=== PATIENT | male | born 1995 | race Caucasian/White ===

== ENCOUNTER 2017-03-10 11:52 | Inpatient (IN) | payer OTHER ==
[~2017-03-10] VITALS: Ht 182.9 cm; Wt 77.1 kg
[2017-03-10] MEDS ORDERED: LORAZEPAM0.5 M1 PO (12:46)
--- NOTE | 2017-03-10 12:57 | ED PSYCHIATRIC COMPLAINT ---
See Addendum History of Present Illness General Chief Complaint: Psychiatric Related Complaint Stated Complaint: BIBA FOR PSYCH Source: MOTHER Exam Limitations: unable to give history, clinical condition Vital Signs & Intake/Output Vital Signs & Intake/Output Vital Signs Date Time Temp Pulse Resp B/P B/P Pulse O2 O2 Flow FiO2 Mean Ox Delivery Rate 03/10 1926 97.2 98 130/84 97 03/10 1310 98.2 88 18 160/80 99 Room Air Allergies Coded Allergies: NO KNOWN ALLERGIES (05/03/12) Reconcile Medications Lorazepam 0.5 MG TABLET 1 TAB PO BIDP PRN ANXIETY (Reported) Triage Note: PT BIBA FROM CARE FOR CHANGE IN AFFECT FROM BASELINE. PATIENT ARRIVES TO ER AOX3, SLOW TO RESPOND TO QUESTIONS, MUMBLING. DENIES ILLICIT DRUG USE OR ETOH. DENIES SI/HI. Triage Nurses Notes Reviewed? yes HPI: Patient presents for evaluation of altered mental status. Patient himself is unable to provide any history. When he attempts to answer a question he simply trails off midsentence and never completes the comment. According to his mother he was recently admitted to [facility] and treated for drug abuse and catatonia with Ativan. He was evaluated again a few days ago in the emergency department after the Ativan prescription ran out and was treated with Ativan and Valium and prescribed additional Ativan. Appointment pending with behavioral health tomorrow. (MARILU SARAVIA,JEAN Benitez) Past History Travel History Traveled to [place] past 21 day No Medical History Any Pertinent Medical History? 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 No (MARILU SARAVIA,JEAN Benitez) Review of Systems Review of Systems Constitutional: Reports: no symptoms. EENTM: Reports: no symptoms. Respiratory: Reports: no symptoms. Cardiovascular: Reports: no symptoms. GI: Reports: no symptoms. Genitourinary: Reports: no symptoms. Musculoskeletal: Reports: no symptoms. Skin: Reports: no symptoms. Neurological/Psychological: Reports: no symptoms. Hematologic/Endocrine: Reports: no symptoms. Immunologic/Allergic: Reports: no symptoms. All Other Systems: Reviewed and Negative (MARILU SARAVIA,JEAN Benitez) Physical Exam Physical Exam General Appearance: SEE BELOW Neurological/Psychiatric: SEE BELOW Comments: General: Alert, calm, cooperative Head: Normocephalic, atraumatic Eyes: Normal inspection, no nystagmus, EOMI Ears: Normal inspection Nose: Normal inspection Throat: Moist mucosa Neck: Supple, no goiter Heart: Regular rate and rhythm, no murmurs rubs or gallops Lungs: Clear to auscultation bilaterally with good air entry Abdomen: Soft nontender nondistended, normal bowel sounds Chest: Nontender Extremities: Normal range of motion grossly, no tremors present, no cyanosis clubbing or edema of the upper extremities Neurologic: cranial nerves II through XII grossly intact, mumbled speech,gait normal Psychiatric: Distant affect with a question of thought blocking or auditory hallucinations, very limited evaluation as the patient cannot effectively communicate. SAD PERSONS Done? unobtained due to conditi (MARILU SARAVIA,JEAN Benitez) Progress Differential Diagnosis: CATATONIA, DEPRESSION, DRUG ABUSE Plan of Care: Orders Procedure Date/time Status Regular Diet 03/10 D Active Patient Safety Monitor 03/10 1257 Active URINE DRUG SCREEN FOR ER ONLY 03/10 1257 Complete THYROID STIMULATING HORMONE 03/10 1257 Complete ETHANOL 03/10 1257 Complete CBC WITHOUT DIFFERENTIAL 03/10 1257 Complete BASIC METABOLIC PANEL 03/10 1257 Complete ED CRISIS PSYCH CONSULT 03/10 1257 Active Patient Safety Monitor 03/10 0500 Active Current Medications Sig/Devyn Start time Last Medication Dose Stop Time Status Admin Lorazepam 1 MG Q8 03/10 1528 AC 03/10 (Ativan) 1606 Laboratory Tests 03/10/17 1355: Urine Opiates Screen < 100.00, Methadone Screen < 40, Barbiturate Screen < 60, Ur Phencyclidine Scrn < 6.00, Amphetamines Screen < 100, U Benzodiazepines Scrn 236 H, Urine Cocaine Screen < 50, Urine Cannabis Screen < 5.00 03/10/17 1310: Anion Gap 13, Estimated GFR > 60, BUN/Creatinine Ratio 15.0, Glucose 91, Calcium 9.5, TSH 0.761, CBC w Diff NO MAN DIFF REQ, RBC 5.52, MCV 88.3, MCH 30.2, RDW 12.6, MPV 8.8, Gran % 68.3, Lymphocytes % 22.4, Monocytes % 8.1, Eosinophils % 0.7, Basophils % 0.5, Absolute Granulocytes 4.7, Absolute Lymphocytes 1.5, Absolute Monocytes 0.6, Absolute Eosinophils 0, Absolute Basophils 0, PUBS MCHC 34.2, Serum Alcohol < 10.0 Comments: 03/10/2017 3:31:11 PM patient has been evaluated by the clinician oncology and he will be observed here in the emergency department and treated with Ativan. To be reevaluated tomorrow morning. 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 (MARILU SARAVIA,JEAN Benitez) Hand-Off Endorsed To: JEAN MICHEL MD Endorsed Time: 0700 Pending: consult (re-eval in AM) (LÁZARO LUO MD) Departure Departure Disposition: STILL A PATIENT Condition: Stable Clinical Impression Primary Impression: Catatonia Referrals: JAYLEN SARAVIA,AUGUST Vazquez (PCP/Family) Departure Forms: Customer Survey General Discharge Information (JEAN MICHEL MD)
--- NOTE | 2017-03-10 13:03 | ED PSY CRISIS COLLATERAL NOTE ---
Collateral Note Collateral Note Family/Inform/Patric Contacts: Lesley and Eileen of [facility] called to inform that they sent pt to the ED from their IOP today. Dr. Bellamy was in the process of papering pt, but the ambulance left with pt before the PEC was completed. Pt has been in tx at [facility] for 1 month and today was pt's 1st day of IOP. He was at IOP today and presented as confused and disoriented. He was barely able to speak other than saying random one word at a time. He was seen in [place] ED over the weekend after ingesting an herbal intoxicant called kratom. Lesley informed that per the [place] discharge paperwork, pt had a similar presentation to today and was deemed not safe for discharge, but Mom still took him home. Pt was Psychiatrically hospitalized in January at [place]. Pt has not yet seen a prescriber at [facility], but is supposed to tomorrow. Pt ran out of his Ativan 0.5mg that was prescribed to him while he was at [facility]. Pt is currently prescribed any other psych meds.
[2017-03-10 13:18] LABS: ABSOLUTE BASOPHIL COUNT 0 /CUMM (0.0-0.2); ABSOLUTE EOSINOPHIL COUNT 0 /CUMM (0.0-0.7); ABSOLUTE GRANULOCYTE CT 4.7 /CUMM (1.4-6.5); ABSOLUTE LYMPH COUNT 1.5 /CUMM (1.2-3.4); ABSOLUTE MONOCYTE COUNT 0.6 /CUMM (0.10-0.60); BASOPHIL % 0.5 % (0.0-2.0); EOSINOPHIL % 0.7 % (0-5); GRANULOCYTE % 68.3 % (42.2-75.2); HEMATOCRIT 48.7 % (42-52); MEAN CORPUSCULAR HGB 30.2 PG (27.0-31.0); MEAN CORPUSCULAR HGB CONC 34.2 G/DL (33.0-37.0); MEAN CORPUSCULAR VOLUME 88.3 FL (80.0-94.0); MEAN PLATELET VOLUME 8.8 FL (7.4-10.4); PLATELET COUNT 237 /CUMM (130-400); RBC DISTRIBUTION WIDTH 12.6 % (11.5-14.5); RED BLOOD CELL CT 5.52 /CUMM (4.70-6.10); WHITE BLOOD CELL COUNT 6.8 /CUMM (4.8-10.8)
--- NOTE | 2017-03-10 16:13 | ED PSYCH CRISIS CONSULTATION ---
See Addendum Crisis Consult Basic Assessment Date of Consult: 03/10/17 Responsible Person/Accompanied By: VAL Insurance Authorization: Insurance #1: Insurance name: SIENA MONTOYA Phone number: Policy number: [id number] Group number: [id number] Authorization number: ED Provider: Patient's ED Provider: JEAN DOBSON MD Primary Care Physician: Patient's PCP: AUGUST YORK MD PCP's Current Psychiatrist: [facility] Chief Complaint: Psychiatric Related Complaint Patient's Quote: none stated Present Illness: Pt is 21 yo male BIBA to ED. Pt was sent to ED by [facility] .Pt presents as catatonic and thought blocking. Pt is unable to articulate or put 2 words together for evaluation. This specifications writer consulted with Dr. Dobson and Dr. Curtis. Dr. Curtis recommends hold over for sedation with Ativan 1mg 3x day to treat symptoms of catatonia. Per collateral note :Lesley and Eileen of [facility] called to inform that they sent pt to the ED from their IOP today. Dr. Bellamy was in the process of papering pt, but the ambulance left with pt before the PEC was completed. Pt has been in tx at [facility] for 1 month and today was pt's 1st day of [facility]. He was at [facility] today and presented as confused and disoriented. He was barely able to speak other than saying random one word at a time. He was seen in [place] ED over the weekend after ingesting an herbal intoxicant called kratom. Lesley informed that per the [place] discharge paperwork, pt had a similar presentation to today and was deemed not safe for discharge, but Mom still took him home. Pt was Psychiatrically hospitalized in January at [place]. Pt has not yet seen a prescriber at [facility], but is supposed to tomorrow. Pt ran out of his Ativan 0.5mg that was prescribed to him while he was at [place]. Pt is currently prescribed any other psych meds.>>>>>>>>>>>>>>>>>>> BRAYDEN OLMSTEAD LCSW Patient's Address: [address] [place] [address] [place] [address] Other Phone Number: Who Do You Live With? Family Family/Informants Interviewed: Kathryn- mother. This specifications writer left a voice mail for collateral Allergies - Coded Allergies: NO KNOWN ALLERGIES (05/03/12) Current Medications - Scheduled PRN Medications Lorazepam 0.5 MG TABLET 1 TAB PO BIDP PRN ANXIETY #28 (Reported) Entered as Reported by NILSON CHAWLA on 03/10/17 1246 Laboratory Results: Laboratory Tests 03/10/17 1355: Urine Opiates Screen < 100.00, Methadone Screen < 40, Barbiturate Screen < 60, Ur Phencyclidine Scrn < 6.00, Amphetamines Screen < 100, U Benzodiazepines Scrn 236 H, Urine Cocaine Screen < 50, Urine Cannabis Screen < 5.00 03/10/17 1310: Anion Gap 13, Estimated GFR > 60, BUN/Creatinine Ratio 15.0, Glucose 91, Calcium 9.5, TSH 0.761, CBC w Diff NO MAN DIFF REQ, RBC 5.52, MCV 88.3, MCH 30.2, RDW 12.6, MPV 8.8, Gran % 68.3, Lymphocytes % 22.4, Monocytes % 8.1, Eosinophils % 0.7, Basophils % 0.5, Absolute Granulocytes 4.7, Absolute Lymphocytes 1.5, Absolute Monocytes 0.6, Absolute Eosinophils 0, Absolute Basophils 0, PUBS MCHC 34.2, Serum Alcohol < 10.0 Past History Past Medical History Neurological: CATATONIA EENT: NONE Cardiovascular: NONE Respiratory: NONE Gastrointestinal: NONE Hepatic: NONE Renal: NONE Musculoskeletal: NONE Psychiatric: substance abuse Endocrine: NONE Blood Disorders: NONE Cancer(s): NONE 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 Psychiatric Treatment History Psych Treatment Psychiatric Treatment Yes Inpatient Treatment Yes Outpatient Treatment Yes Location of Treatment [facility] ( most recent January 2017 IP) Care - present Reason for Treatment substances ( Kratom) Dates of Treatment January 2017 Response to Treatment poor Diagnosis by History: none stated Substance Use/Abuse History Drug Use/Abuse Substances Used/Abused Yes Substance Used/Abused Other (list in comments) (Kratom ) Substance Abuse Treatment Substance Abuse Treatment Past Substance Abuse [place] Yes Inpatient Treatment Yes Location of Treatment [place] Comments: unable to assess substance abuse hx at this time Current Mental Status Mental Status Orientation: Confused Affect: Constricted, Flat Speech: Poverty Appearance Appearance- Dress/Hygiene: Pt is dressed in blue hospital gown, hygiene fair, blue eyes- appeared dialated Behaviors Thought Process: Thought Blocking Thought Content: Thought Blocking Memory: Impaired Insight: Poor SI/HI Risk Assessment Gravely Disabled: Inability Risk Factors: age (under 24/over 65), high anxiety/distress, SA/MH hospitalized, isolate/no social support, male, Pt is catatonic and unable to articulate symptoms Lethality Ratin PTSD Checklist PTSD Done? pt unable to participate ED Management Sitter: Yes Restraints: No DSM5/PS Stressors/Medical Prob Diagnosis' (DSM 5, Stressors, Medical): Unspecified catatonia ( F06.1) ( R29.818) hx of using kratom medical: none stated psychosocial: unknown Current GAF: 20 Comments: Pt is unable to provide psychosocial hx of MH/SA. Departure Disposition Psych Medical Clearance Date: 03/10/17 Medically Cleared at: 1440 Time Started: 1440 Time Ended: 1515 Psychiatrist Consulted: Gurdeep Curtis MD Date Disposition Established: 03/10/17 Time Disposition Established: 1514 Plan for Disposition - Modality: Hold over for sedation Rationale for Disposition: Pt presents as gravely disabled ie catatonic , thought blocking and unable to articulate or give coherent story. This specifications writer consulted with Dr. Curtis and recommends hold over for sedation with Ativan 1mg 3x day to treat symptoms of catanoia. Referrals JAYLEN SARAVIA,AUGUST Vazquez (PCP/Family)
--- NOTE | 2017-03-11 09:45 | IP CRISIS DIAG ASSESS PSYCH ---
Diagnostic Assessment Basic Assessment Insurance Authorization: Insurance #1: Insurance name: SIENA MONTOYA Phone number: [phone] Policy number: [id number] Group number: [id number] Authorization number: [id number] dates approved through 03/11-03/14/17 Review with Suzette on 03/14 Primary Care Physician: Patient's PCP: AUGUST YORK MD PCP's Patient's Quote: none stated Present Illness: Pt is 21 yo male BIBA to ED. Pt was sent to ED by [facility] .Pt presents as catatonic and thought blocking. Pt is unable to articulate or put 2 words together for evaluation. This narrative writer consulted with Dr. Dobson and Dr. Curtis. Dr. Curtis recommends hold over for sedation with Ativan 1mg 3x day to treat symptoms of catatonia. Per collateral note :Lesley and Eileen of [facility] called to inform that they sent pt to the ED from their IOP today. Dr. Bellamy was in the process of papering pt, but the ambulance left with pt before the PEC was completed. Pt has been in tx at [facility] for 1 month and today was pt's 1st day of IOP. He was at [facility] today and presented as confused and disoriented. He was barely able to speak other than saying random one word at a time. He was seen in [facility] ED over the weekend after ingesting an herbal intoxicant called kratom. Lesley informed that per the [facility] discharge paperwork, pt had a similar presentation to today and was deemed not safe for discharge, but Mom still took him home. Pt was Psychiatrically hospitalized in January at [facility]. Pt has not yet seen a prescriber at [facility], but is supposed to tomorrow. Pt ran out of his Ativan 0.5mg that was prescribed to him while he was at [facility]. Pt is currently prescribed any other psych Pt presents as gravely disabled ie catatonic , thought blocking and unable to articulate or give coherent story. This narrative writer consulted with Dr. Curtis and recommends hold over for sedation with Ativan 1mg 3x day to treat symptoms of catanoia. Pt's mom is with patient gave this narrative writer 2 discharge summaries of his recent ED visits for substanced induced catatonia ( dates January 18-January 26 2017 [facility] 03/06/17 ). Today Pt's UTOX was positive for benzo. Alcohol was negative . Crisis provided re-eval. Pt presented as non-verbal but maintaining eye contact. appears restless/pacing in room and hallway. Parents present. POC reviewed. Pt ordered Ativan 1mg TID with plan to re-assess by crisis in the morning to determine if pt clears or requires inpatient treatment. Crisis re-evaluated pt his morning. In morning sign-out, per Dr. Sandoval, pt was wandering into other pt's room during the night and staring at them. Upon crisis re eval, pt continues to thought block and have difficulty with verbal expression. His affect is flat. He is able to get some words out, but they are random and not relevant to the questions asked. He had periodic moments of clarity that were sporadic and did not last. He was able to identify that he is in [facility] and that he was sent by [facility]. He was able to ask if he could call his father. WHen he was told he was going to be admitted to [facility], he expressed that he wanted to go home. Pt continues to wander out of his room with a blank stare on his face. Case reviewed with Dr. John of Psychiatry and pt will be admitted to [facility] on a PEC. Pt's parents were informed. Mom Kathryn German asked that she be called on her cell rather than home . Diagnostic assessment was limited to to pt's current presentation. Patient's Address: [address] [place] [address] [place] [address] Other Phone Number: Who Do You Live With? Family Feel Safe Where You Live? Yes Feel Safe in Your Relationship Yes Marital Status: single Do You Have Children? No Primary Language? Indonesian Language(s) Spoken At Home: Lithuanian Family/Informants Interviewed: Parents were notified of admission and are in agreement. [facility] also notified Allergies - Coded Allergies: NO KNOWN ALLERGIES (05/03/12) Current Medications - Scheduled PRN Medications Lorazepam 0.5 MG TABLET 1 TAB PO BIDP PRN ANXIETY #28 (Reported) Entered as Reported by NILSON CHAWLA on 03/10/17 3250 Lab Results: Laboratory Tests 03/10/17 1355: Urine Opiates Screen < 100.00, Methadone Screen < 40, Barbiturate Screen < 60, Ur Phencyclidine Scrn < 6.00, Amphetamines Screen < 100, U Benzodiazepines Scrn 236 H, Urine Cocaine Screen < 50, Urine Cannabis Screen < 5.00 03/10/17 1310: Anion Gap 13, Estimated GFR > 60, BUN/Creatinine Ratio 15.0, Glucose 91, Calcium 9.5, TSH 0.761, CBC w Diff NO MAN DIFF REQ, RBC 5.52, MCV 88.3, MCH 30.2, RDW 12.6, MPV 8.8, Gran % 68.3, Lymphocytes % 22.4, Monocytes % 8.1, Eosinophils % 0.7, Basophils % 0.5, Absolute Granulocytes 4.7, Absolute Lymphocytes 1.5, Absolute Monocytes 0.6, Absolute Eosinophils 0, Absolute Basophils 0, PUBS MCHC 34.2, Serum Alcohol < 10.0 Toxicology Screen Completed? Yes Results: positive Past History Past Surgical History Surgical History none Abuse/Trauma History Trauma History/Current Trauma: unable to assess Legal History Current Legal Status: unable to assess Psychosocial History Strengths/Capabilities: unable to assess at this time Physical Limitations (Interventions): unable to assess at this time. Psychiatric Treatment History Psych Treatment Psychiatric Treatment Yes Inpatient Treatment Yes Outpatient Treatment Yes Location of Treatment [facility] ( most recent January 2017 IP) [facility] - present Reason for Treatment substances ( Kratom) Dates of Treatment January 2017 Response to Treatment poor Diagnosis by History: none stated Risk Factors: age (under 24/over 65), high anxiety/distress, SA/MH hospitalized, isolate/no social support, male, Pt is catatonic and unable to articulate symptoms Substance Use/Abuse History Drug Use/Abuse minimum 12mo Hx Substances Used/Abused Yes Substance Used/Abused Other (list in comments) (Kratom ) Substance Abuse Treatment Substance Abuse Treatment Past Substance Abuse TX Yes Inpatient Treatment Yes Location of Treatment [facility] Current Mental Status Mental Status Orientation: Confused Affect: Constricted, Flat Speech: Poverty Appearance Appearance- Dress/Hygiene: Pt is dressed in blue hospital gown, hygiene fair, blue eyes- appeared dialated Behaviors Thought Process: Thought Blocking Thought Content: Thought Blocking Memory: Impaired Insight: Poor SI/HI Risk Assessment - Minimum 6mo History- Gravely Disabled: Inability Risk Factors: age (under 24/over 65), high anxiety/distress, SA/MH hospitalized, isolate/no social support, male, Pt is catatonic and unable to articulate symptoms Lethality Ratin Needs/Init TX Plan/Goals: Safety and stabilization of sx, individual, group and family therapy, med eval AUDIT-C Questionnaire: AUDIT-C Questionnaire: Response Value ETOH use in the past year Never 0 # drinks typical/day Doesn't Drink 0 6 or > drinks per occasion Never 0 Total 0 DSM5/PS Stressors/Medical Prob Diagnosis' (DSM 5, Stressors, Medical): Unspecified catatonia ( F06.1) ( R29.818) hx of using kratom medical: none stated psychosocial: unknown Current GAF: 20 Comments: Pt is unable to provide psychosocial hx of MH/SA.
--- NOTE | 2017-03-11 10:14 | SOCIAL WORKER PROG NOTE PSYCH ---
Social Work Progress Note Progress Note Unable to complete social hx due tp pt's sx
--- NOTE | 2017-03-11 14:16 | History & Physical ---
General Information and HPI History of Present Illness: 21M admitted to [facility] with catatonia. Unknown psychiatry history, most recently seen at behavioral health at [place]. Per [facility] staff patient takes Kratom. Patient is minimally verbal, not responsive to questions or commands. He is walking around but not interacting. He appears well and in no other distress. Refusing review of systems and physical exam. 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 Home ETOH Use: denies use Review of Systems Review of Systems Constitutional: Reports: see HPI. Exam & Diagnostic Data Last 24 Hrs of Vital Signs/I&O Vital Signs Date Time Temp Pulse Resp B/P B/P Pulse O2 O2 Flow FiO2 Mean Ox Delivery Rate 03/11 1210 97.0 104 18 164/94 97 Room Air 03/11 0743 97.6 108 18 157/95 97 Room Air 03/11 0603 97.9 90 18 152/94 99 Room Air 03/10 1926 97.2 98 130/84 97 Intake & Output 03/11 1600 03/11 0800 03/11 0000 Intake Total 45 Output Total Balance 45 Intake, Oral 45 Patient 77.111 kg Weight Physical Exam General Appearance Refuses physical exam Assessment/Plan Assessment: 21M admitted for catatonic behavior. Management will be by psychiatry. Re- consult medicine if medical issues arise. Ambulatory for DVT PPx As Ranked By This Provider Problem List: 1. Catatonia Miscellaneous Miscellaneous Documentation Attending Case Discussed With: OSMANY HOLT MD Primary Care Physician: AUGUST YORK MD Patient sees these Specialists None Level of Patient Care: [facility]
--- NOTE | 2017-03-11 23:24 | CPS MD/APRN INITIAL ASSE PSYCH ---
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 Chief Complaint: patient is unable to respond due to agitation and disorganization Reaction to Hospitalization: placed on PEC for grave disability History of Present Illness Onset of Illness: In December 2016 he presented to the [facility]'s ED with restlessness , disorientation,disorganized. hospitalized January 18-January 26 2017 [facility] 03/06/17 Circumstances Leading to Admission: The patient started IOP at [facility] and was unable to participate because of dizorganization, thought blocking, inability to relate and communicate. He was sent to our ED from there. Problem(s) Justifying Need for Admission: confused, disorganized,unable to for coherent thought/speech, gravely disabled Other HPI: none mentioned by patient nor his parents Past Psychiatric History Past Diagnosis(es)- if any: Substance induced psychotic disorder(per [place]) Past Precipitating Factors- if any: use of herbal stimulant/sedative Kratom - Include inpatient and outpatient treatment Treatment History: as noted History of Suicide Attempts or Gestures none known by parents, pt. unable to cooperate Substance Abuse History: Kratom Allergies: Coded Allergies: NO KNOWN ALLERGIES (05/03/12) Home Med List: lorazepam 0.5 mg po BID - Include any medical condition(s) that may - impact the patient's recovery/remission Past Medical History: none Past History Medical History Any Pertinent Medical History? unobtainable Blood Transfusion Hx: No Neurological: CATATONIA EENT: NONE Cardiovascular: NONE Respiratory: NONE Gastrointestinal: NONE Hepatic: NONE Renal: NONE Musculoskeletal: NONE Psychiatric: substance abuse Endocrine: NONE Blood Disorders: NONE Cancer(s): NONE DELIVERY SUPERVISOR/Reproductive: NONE Isolation History: Standard Surgical History Surgical History: none Psychiatric Family/Social Hx Family History Psychiatric Illness: none known Substance Use: none known Suicides: parents deny Other Family History: none known Social History Living Situation: with parents Significant Relationships (family/friends): unable to respond Education: unable to respond Vocation/Occupation: unemployed Legal: none known(per parents) Healthly Behaviors Screening Tobacco Screening Tobacco Use from ED Docu: Never used - If tobacco counseling indicated - the following topics are required. - #1 Recognizing dangerous situations. - #2 Coping Skills. - #3 Basic information about quitting. Status of Tobacco Cessation Counseling: Not Applicable Cessation Med Status Not Applicable Alcohol Screening - ETOH screen POS if BAL >=80 or Audit-C>= M4/F3 Audit-C Score from Diag Assess: 0 Blood Alcohol Level: Laboratory Tests 03/10 1310 Toxicology Serum Alcohol (<10 MG/DL) < 10.0 Alcohol Use Screening Results: Neg per Audit C &/or BAL - If ETOH counseling indicated - the following topics are required. - #1 Express concern about the patient's - drinking at unhealthy levels, include informing - of national norms for moderate drinking: - men <= 14 drinks/week, max 4 drinks/occasion - women <= 7 drinks/week, max 3 drinks/occasion - #2 Providing feedback, including linking alcohol to - negative physical effects (liver injury, hypertension) - negative emotional effects (relationship problems and - depression) - negative occupational consequences (reduced work - performance) - #3 Advising the patient to abstain from alcohol or - to drink below national norms for moderate drinking - (as listed above). Status of ETOH Use Counseling: N/A B/C NO ETOH Use Metabolic Screening - Screen if on a Neuroleptic Medication - Metabolic screening should include: - Blood Pressure, BMI, Glucose or Hgb A1c, & a - Lipid profile from within the past 365 days. Metabolic Screening () Not Applicable, patient not on a neuroleptic. OR () Patient on a neuroleptic(s) . Enter below results for Glucose or Hemoglobin A1C, and lipid panel if obtained during the last 365 days. BMI: 23.000 Blood Pressure: 143/84 Laboratory Results (If applicable): Lab Glucose 91 mg/dL 03/10/17 1310 Lab Anion Gap 13 03/10/17 1310 BUN 15 mg/dL 03/10/17 1310 BUN/Creatinine Ratio 15.0 % 03/10/17 1310 Calcium 9.5 mg/dL 03/10/17 1310 Carbon Dioxide 25 mmol/L 03/10/17 1310 Chloride 102 mmol/L 03/10/17 1310 Creatinine 1.0 mg/dL 03/10/17 1310 Estimated GFR > 60 ml/min 03/10/17 1310 Free T4 1.55 ng/dL 03/12/17 0630 Glucose 91 mg/dL 03/10/17 1310 Potassium 4.1 mmol/L 03/10/17 1310 Sodium 140 mmol/L 03/10/17 1310 TSH 0.761 uIU/mL 03/10/17 1310 Thyroxine (T4) 10.3 ug/dL 03/12/17 0630 Absolute Basophils 0 /CUMM 03/10/17 1310 Absolute Eosinophils 0 /CUMM 03/10/17 1310 Absolute Granulocytes 4.7 /CUMM 03/10/17 1310 Absolute Lymphocytes 1.5 /CUMM 03/10/17 1310 Absolute Monocytes 0.6 /CUMM 03/10/17 1310 Basophils % 0.5 % 03/10/17 1310 Eosinophils % 0.7 % 03/10/17 1310 Gran % 68.3 % 03/10/17 1310 Hct 48.7 % 03/10/17 1310 Hgb 16.7 G/DL 03/10/17 1310 Lymphocytes % 22.4 % 03/10/17 1310 MCH 30.2 PG 03/10/17 1310 MCV 88.3 FL 03/10/17 1310 MPV 8.8 FL 03/10/17 1310 Monocytes % 8.1 % 03/10/17 1310 PUBS MCHC 34.2 G/DL 03/10/17 1310 Plt Count 237 /CUMM 03/10/17 1310 RBC 5.52 /CUMM 03/10/17 1310 RDW 12.6 % 03/10/17 1310 WBC 6.8 /CUMM 03/10/17 1310 U Benzodiazepines Scrn 236 NG/ML H 03/10/17 1355 Exam and Plan Mental Status Examination Ambulation Status: without assiatance Appearance: tall, lanky, looks stated age, well groomed, in hospital issued blue paper scrubs Attitude towards examiner: irritable, non cooperative Psychomotor activity: agitation, restless, aimless pacing, wandering in othr patient's rooms Behavior: disorganized Quality of speech: poverty of speech Affect: anxious Mood: irritable, anxious Suicidal Ideation: unable to assess Homicidal Ideation: unable to assess Hallucinations: seems to respond to internal stimuli Paranoid/Delusional Material: guarded and suspicious Difficulties with thought organization: poverty of thought Insight: unable to assess Judgment: unable to assess Orientation: unable yo assess Cognition: unable to assess Memory Function: unable to assess Estimate of intellectual functioning: the patient is almost non verbal, we are unable to assess the intellectual functioning, as per parents it is average/above average Assets/Strengths Patient Identified Assets/Strengths: unable to assess Impression/Plan Impression and Plan: This is a 21 years old, , single male, who started having episodes of restlessness, agitation, disorganization, confusion, approximately in December 2016. The patient does not have past psychiatric history, the family history is not significant for mental illness or substance and alcohol use/abuse/dependence. The patient himself does not smoke, does not drink. He has been using Kratom for an indefinite period of time as per his parents report. He was brought into the emergency room from [facility] via the ambulance due to yet another episode. He continues to be agitated, confused, disorganized, almost nonverbal, difficult to redirect and communicate with. CT scan performed in [facility] was negative. The patient's thyroid functions are intact, his baseline lab work results are within normal limits. The patient does not have any physical illness. Diagnosis: Unspecified psychotic disorder with prominent anxiety and catatonic agitation Rule out substance-induced psychotic disorder, schizophreniform disorder, schizophrenia The only stressors identified were the use of the herbal drug care Karom and unemployment. 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 - Include all active medical diagnosis that require tx DSM 5 Diagnosis(es): Unspecified psychotic disorder with prominent anxiety and catatonic agitation Rule out substance-induced psychotic disorder, schizophreniform disorder, schizophrenia Kratom use disorder The only stressors identified were the use of the herbal drug care Karom and unemployment. Current GAF is 20% - Initial Tx Plan for Active Psych & Medical Conditions Treatment Plan: Inpatient treatment, admitted on PEC as gravely disabled start on medication to reduce/eliminate psychosis and catatonic agitation _ multimodal treament during inpatient stay(group&individual therapy, relaxation ,auricular acupuncture,aroma therapy) - Factors that would help patient function - in a less restrictive setting. Factors: -absence of psychosis -ability to unteract appropriately to peers and staff members -appropriate discharge plan
[2017-03-12 08:04] VITALS: BP 143/84
--- NOTE | 2017-03-12 11:12 | SOCIAL WORKER PROG NOTE PSYCH ---
Social Work Progress Note Progress Note Pt was unable to participate in social hx due to disorganization and thought blocking.
[2017-03-12 12:26] VITALS: BP 140/97
--- NOTE | 2017-03-12 14:38 | CP SOUTH PROGRESS NOTE PSYCH ---
Psych (Inpt) Progress Note Progress Note Patients record reviewed, YAMILKA Jackson gave verbal report Vitals and medication list reviewed. BP this AM was 143/84, pulse 120 beats/min, Temp 97.8 Sleep log indicated that patient slept well most of the evening and all night. 1:1 observation." Lab results today: TSH, T4 anf free T4 all WNL I interviewed patient Diagnoses of Record: Unspecified catatonia ( F06.1) ( R29.818) hx of using kratom 21 yo male BIBA to ED. Pt was [facility] to ED [facility] .Pt presents as catatonic and thought blocking. Pt is unable to articulate or put 2 words together for evaluation. Mental Status Update Patient is on 1:1 observtion status which was continued because he remains very disorganized in thought and behavior He was incoherent and his responses to questions did not make sense His risk factors could not assessed reliabley in his current condiction He denied voices and insisted they are thoughts Denied thinking of suicide today, denied violent thoughts or homicidal ideation. PLAN: I reviewed his medications and options, his vitals may suggest Kratom withdrawal (opiate-like), we agreed on the following plan: Change Zyprexa to 15 mg all at bedtime Continue Ativan as is Add Clonidine PRN for elevated systolic above 125 mmHg or diaatolic above 85 mmHg Follow up tomorrow
[2017-03-12 16:04] VITALS: BP 137/75
[2017-03-12 21:10] VITALS: BP 136/56
[2017-03-13 08:32] VITALS: BP 121/77
--- NOTE | 2017-03-13 13:00 | CP SOUTH PROGRESS NOTE PSYCH ---
Psych (Inpt) Progress Note Progress Note BP this AM was 121/77, pulse 30 beats/min, Temp 97.7 Sleep log indicated that patient disorganized in evening, tried to leave unit with departing staff, entering and not leaving nurses station, security called, pt. refused PO meds at the time, IM hadlol/Ativan, remained in room afterwards, slept throughout, HS meds held due to sleep. No new Lab results today I interviewed patient in his room Diagnoses of Record: Unspecified catatonia ( F06.1) ( R29.818) hx of using kratom 21 year-old singlw White male sent to ED by [facility]. Pt presents as catatonic and thought blocking. Pt is unable to articulate or put 2 words together for evaluation. Mental Status Update Less disorganized, I was able to carry on a longer conversation with him today in his room Repeated I want to see my parents several times. They visited yesterday, he is expecting a visit today He was still incoherent and his responses were sometimes irrelevant to questions asked He did not acknowledge or deny hallucinations, his response was a delay followed by I want to see my parents, He offered the same response when asked about thoughts of suicide He knew it was Tuesday PLAN: I reviewed his medications and options, his vitals settled down since yesterday, denied nausea, vomiting or diarrhea, no muscle spasms, denied joint or back aches Discontinue clonidine Follow up with regular treatment team tomorrow Discussed 1:1 status with RN (Renetta), we agreed to Discontinue the constant observation status (1:1)
[2017-03-13 15:42] VITALS: BP 137/84
[2017-03-13 17:20] VITALS: BP 136/76
[2017-03-13 19:39] VITALS: BP 128/71
[2017-03-14 08:12] VITALS: BP 136/85
--- NOTE | 2017-03-14 11:12 | SOCIAL WORKER SOCIAL HX PSYCH ---
Social History Basic Assessment Insurance Authorization: Insurance #1: Insurance name: SIENA MONTOYA Phone number: Policy number: [id number] Group number: [id number] Authorization number: [place] Source of Income/Entitlements: PARENTS Primary Care Physician: Patient's PCP: AUGUST YORK MD PCP's Present Problem: Patient intent on wanting to leave. Agitated and still only minimally cooperative. Superficial relating. Thought blocking Primary Language? Chilean Language(s) Spoken At Home: Chilean Living Situation Other Living Arrangement: relative's/guardian's wilma Feel Safe Where You Are Living Yes Feel Safe in Relationships? Yes Comments: Patient sent from [facility] after appearing catatonic. Patient is agitated and focused on leaving hospital. Allergies - Coded Allergies: NO KNOWN ALLERGIES (05/03/12) Current Medications - Discontinued Medications Lorazepam 0.5 MG TABLET 1 TAB PO BIDP PRN ANXIETY #28 (Reported) Discontinued reason: Changed Dose Consequences of Psych Med Use: not previously on meds Past History Past Medical History Any Pertinent Medical History? unobtainable Neurological: CATATONIA EENT: NONE Cardiovascular: NONE Respiratory: NONE Gastrointestinal: NONE Hepatic: NONE Renal: NONE Musculoskeletal: NONE Psychiatric: substance abuse Endocrine: NONE Blood Disorders: NONE Cancer(s): NONE TEXTILE CONSERVATOR/Reproductive: NONE Past Surgical History Surgical History: non-contributory /Family History Place/Country of Origin: [place] Childhood Family Constellation: Mother, Father, and one older sister Primary Childhood Caretakers: father, mother Family Life During Childhood: good Family wanted to move to [place] and hev was 10 y.o. when that was done DCF Involvement? No Mother's Age (Current/): 52 Relationship w/Mother: very good good health Father's Age (Current/): 55 Relationship w/Father: good as well. Any Sibling(s)? Yes Sibling's Gender(s)/Age(s): female Sibling 1: Relationship w/Sibling(s): good relat. w. older sister Relationship w/Friends: not too many friends Abuse/Trauma History Trauma History/Current Trauma: unable to assess Victim or Perpretator? victim (neither) Patient's Age at Time of Trauma: 0 History of Trauma/Abuse Treatment? No Legal History Legal Guardian/Address/Phone: Kathryn German [phone] Current Legal Status: none Pending Court Dates: none Have you ever been arrested No Hx of Juvenile Legal Charges? No Hx of Adult Legal Charges? No Civil Proceedings: none Domestic Relations Court: none Child Protective Serv Involvmnt none Psychosocial History Primary Support System: father, mother Strengths/Capabilities: unable to assess at this time Weaknesses: patient does not see any problem. He does not wish to be here, and sees no reason to stay. Physical Limitations (Interventions): unable to assess at this time. History of Seizures? No History of Blackouts? No ADL Limitations: none [place]/Social/Peer Relations casual h s friends Meaningful Activities: pt started [employer] college Childhood Confucianist: Gnosticist Is Spirituality Important to You? not too much Patient's Ethnicity: Turkmen Cultural/Ethnic Issues: emmigrated at age 10 to [place] Are There Developmental Issues? No Milestones Achieved: WNL Psychiatric Treatment History Psych Treatment Inpatient Treatment Yes Outpatient Treatment Yes Location of Treatment [facility] ( most recent January 2017 IP) Care - present Reason for Treatment substances ( Kratom) Dates of Treatment January 2017 Response to Treatment poor Precipitating Factors: drug use ? Current Operations Label Clerk: B Care Treatment of Prior Episodes: [facility] Diagnosis: none stated Psychodynamic Issues: "just want to be left alone" Risk Factors: age (under 24/over 65), access to lethal means, high anxiety/ distress, SA/MH hospitalized, isolate/no social support, male, Pt is catatonic and unable to articulate symptoms Substance Use/Abuse History Drug Use/Abuse Substance Used/Abused Heroin (Kratom ) First Use 1-2 years ago Last Used 4 months ago How much used/taken Pt states $50 worth I V How often sev daysv week For how long vague----over period of year or so Route of use i v Have Had Periods of Sobriety? Yes Relapse History? No Have You Ever Attended AA? No Do You Attend AA Currently? No Do You Have a Sponsor? No Other Community Resources Used: B [facility] Care Symptoms of Use: too vague and evasive to understand Substance Abuse Treatment Substance Abuse Treatment Inpatient Treatment Yes Location of Treatment [place] Comments: claims clean and wants to stay that way Sexual History Sexually Active No # of partners 0 Sexual Orientation Heterosexual Use of Protection No Education History Highest Level of Education: high school/GED Highest Grade Completed: 12 Number of College Years: 0 Preferred Learning Style: visual HX of Learning Difficulties: None reported Barriers to Learning: None reported Special Communication Needs: None reported Employment History Employment Unemployed Not in Labor Force: Student No. of Jobs in Last 5 Years: 1 Attendance: Normal Performance: Good History Have You Been in The ? No Current Mental Status Mental Status Orientation: Confused Affect: Anxious, Angry, Constricted, Flat Speech: Perseveration, Poverty Neuro-vegetative: Concentration Poor Appearance Appearance- Dress/Hygiene: Pt is dressed in blue hospital gown, hygiene fair, blue eyes- appeared dialated Behaviors Thought Process: Tangential, Thought Blocking Thought Content: Thought Blocking Memory: Impaired Insight: Poor SI/HI Risk Assessment Past Suicidal Ideation/Attempts No Current Suicidal Ideation/Att No Past Homicidal Ideation/Att: No Current Homicidal Ideation/Attempts No Degree of Intent: None Gravely Disabled: Inability Risk Factors: Access to lethal weapons, High Anxiety/Distress, SA/MH Hospitalization(s), Isolated/no social suppor, Substance Abuse Lethality Ratin - Conclusion and Recommendations for treatment - and discharge planning
--- NOTE | 2017-03-14 11:18 | SOCIAL WORKER PROG NOTE PSYCH ---
Social Work Progress Note Progress Note Patient seen for one on one session to discuss treatment and to get sense of need and current status, as well as social history. It was extremely difficult getting patient to focus on questions as he continually said that he wanted to leave and did not belong here. He answered some questions , but was highly distractable, and soon after he once again asked why he could not leave. Responses were not assimilated, and patient soon asked again as if we had not just gone over process. Patient is thought blocked and he is unable to contribute to his future planning at this time
--- NOTE | 2017-03-14 11:22 | CP SOUTH PROGRESS NOTE PSYCH ---
Psych (Inpt) Progress Note Progress Note Include the following elements, when applicable: Involvement in the active treatment of the patient with behavioral observations of the patient and the patient's response to the treatment. Review of the ongoing treatment process in the context of the treatment plan. Indication of how multi-disciplinary staff members are carrying out the treatment plan. Plans for future interventions and recommendations for revision of the treatment plan. Liaison with other physicians/providers. Progress Note: I discussed this patient's progress to date, current mental status, treatment process in the context of the treatment plan, and discharge planning with staff/ team in the daily morning inpatient team meeting. I also met with the patient myself in individual session. OBJECTIVE: Current Medications Sig/Devyn Start time Last Medication Dose Route Stop Time Status Admin Clonidine 0.1 MG Q6-PRN PRN 03/12 1300 DC 03/13 PO 1723 Lorazepam 1 MG 4 TIMES/DAY 03/11 1800 AC 03/14 PO 0918 Olanzapine 10 MG 0800,2100 03/14 2100 UNVr PO Olanzapine 10 MG ONE TIME ONE 03/14 1045 DC 03/14 PO 03/14 1046 1045 Olanzapine 15 MG AT BEDTIME 03/12 2200 DC 03/13 PO 2128 Olanzapine 2.5 MG Q6P PRN 03/11 1400 AC 03/13 PO 1708 Vital Signs Date Time Temp Pulse Resp B/P B/P Pulse O2 O2 Flow FiO2 Mean Ox Delivery Rate 03/14 0812 97.1 93 136/85 03/13 1939 98.0 81 128/71 03/13 1723 99 136/76 03/13 1720 99 136/76 03/13 1542 94 137/84 Lab Cholesterol 148 MG/DL 03/12/17 0630 Cholesterol/HDL Ratio 3 % 03/12/17 0630 HDL Cholesterol 59 mg/dL 03/12/17 0630 LDL Cholesterol, Calc 76 mg/dL 03/12/17 0630 Triglycerides 69 mg/dL 03/12/17 0630 ASSESSMENT: Patient is a 21-year-old single, unemployed, male with a history of psychosis, who lives with his parents. He was admitted to [facility] on a PEC d/t grave disability after being sent to ED from [facility] for disorganized thoughts, catatonia and thought blocking. Reviewed patient's progress to date with nursing staff who described the patient as selectively resistent to scheduled HS Zyprexa. He occasionally thought blocks and is limited in conversation d/t slowly improving catatonia. It was reported that patient was exit-seeking earlier this morning after meeting in the conference room with HEAVY RAIL TRAIN OPERATOR. Security presence was required to redirect the patient back into the milieu. Once in the milieu, the patient again sought out an alternative exit. He was redirected by staff and offered Zyprexa 10mg po which he accepted without issue. Patient was offered another prn of Zyprexa 5mg later in the afternoon after fire alarm sounded for a drill and patient grew exit-seeking. Patient showed adherence to po administration. Chart, progress notes, labs, VS and medication list reviewed. Vital signs within normal limits. Add-on lipid panel within normal limits. Met with patient in the milieu this morning. Patient continued to perseverate on going home. He told me several times "let me go." Informed patient that request would not be granted today, given the continued severity of his symptoms. Thought process remained disorganized, spoke about wanting to watch "new" movies and then referenced the movie [place]. Responses were sometimes irrelevant to questions asked. He was able to recall that he was sent to ED from [facility]. When asked to recall what events led him to the ED, the patient stated "because it was cooler in the ambulance. It was to hot outside." Patient aware that today is Tuesday and aware he is at [facility]. Today, patient denies suicidal and homicidal ideation. He denies homicidal ideation, auditory and visual hallucinations. There is no overt evidence of the patient responding to internal stimuli. Eye contact hesitant. Speech more fluid than in previously documented records. Thought process, non-linear, disorganized. Occasional thought blocking observed. Insight and judgement poor. Patient with continued thought disturbance possibly in the setting of s/p Kratom ingestion. Patient continues to require inpatient hospitalization for safety and stabilization. PLAN: 1. Increase Zyprexa from 15mg QHS to 20mg QHS for continued thought disturbance. Will change dosing from 15mg QHS to 10mg QAM/10mg QHS. 2. Start Ativan taper as ordered. 3. Will attempt family meeting tomorrow for further collateral. 4. Continue monitoring for psychosis, mood, and safety. 5. Dispo planning per primary team.
[2017-03-14 12:28] VITALS: BP 137/75
[2017-03-14 15:48] VITALS: BP 155/80
[2017-03-14 20:08] VITALS: BP 150/85
[2017-03-15 07:36] VITALS: BP 143/82
--- NOTE | 2017-03-15 10:40 | SOCIAL WORKER PROG NOTE PSYCH ---
Social Work Progress Note Progress Note Patient reported that he is umhappy here. There has been no opportunity to have a meaningful conversation, as, while he may answer a question, but then states that hwe just wants to go. He focuses on my badge stating that it says Psychiatry, so he will not accept that I am not the doctor, and I do not have the authority to discharge him even if I felt that he were ready. Conversation has not been too productive thusfar. Patient is completely focused on "getting out of here", and he just wont relax sufficiently to permit a discussion. Meeting is scheduled with patient's mother, and his chemicals fermentation operator, Cailin Morales APRN. today at 1:30 p.m. Patient is considered too fragile at this time, and would likely get upset if he feels he will not be discharged right away. Patient has continued to be restless and has much difficulty focusing.
--- NOTE | 2017-03-15 11:19 | CP SOUTH PROGRESS NOTE PSYCH ---
Psych (Inpt) Progress Note Progress Note Include the following elements, when applicable: Involvement in the active treatment of the patient with behavioral observations of the patient and the patient's response to the treatment. Review of the ongoing treatment process in the context of the treatment plan. Indication of how multi-disciplinary staff members are carrying out the treatment plan. Plans for future interventions and recommendations for revision of the treatment plan. Liaison with other physicians/providers. Progress Note: I discussed this patient's progress to date, current mental status, treatment process in the context of the treatment plan, and discharge planning with staff/ team in the daily morning inpatient team meeting. I also met with the patient myself in individual session. OBJECTIVE: Current Medications Sig/Edvyn Start time Last Medication Dose Route Stop Time Status Admin Lorazepam 0.5 MG 0803/17 0800 AC PO 03/17 0801 Lorazepam 0.5 MG 0800,03/16 0800 AC PO 03/16 2001 Lorazepam 1 MG 0800,03/15 0800 AC 03/15 PO 03/15 Lorazepam 1 MG 1400,03/14 1400 DC 03/14 PO 03/14 2001 195 Lorazepam 1 MG 4 TIMES/DAY 03/11 1800 DC 03/14 PO 0918 Olanzapine 10 MG 0800,03/14 2100 AC 03/15 PO 0821 Olanzapine 5 MG ONE TIME ONE 03/14 1500 DC 03/14 PO 03/14 1501 1505 Olanzapine 15 MG AT BEDTIME 03/12 2200 DC 03/13 PO 2128 Olanzapine 2.5 MG Q6P PRN 03/11 1400 AC 03/13 PO 1708 Vital Signs Date Time Temp Pulse Resp B/P B/P Pulse O2 O2 Flow FiO2 Mean Ox Delivery Rate 03/15 0736 97.1 90 143/82 03/14 2008 97.3 97 150/85 03/14 1548 101 155/80 03/14 1228 96 137/75 ASSESSMENT: Chart, progress notes, labs, VS and medication list reviewed. Vital signs within normal limits. No new labs results today. Patient's tx progress to date was discussed/reviewed with nursing staff who described patient as more talkative but still demonstrates difficulty processing information; not following directions; thought process still disorganized; focused on discharging from hospital. Continues to remain exit-seeking. Met patient this morning together with Mitesh Johnny, INSULATION MANAGER in patient's room. He was oriented x 3. Patient was able to participate in a longer conversation today versus yesterday. Content of conversation remains preoccupied on returning home. He repeated several times "I want to go home...I want to go home to my parents. " Stated having a "good" visit with father last evening. He also stated that his father "looked different last night" but could not elaborate on statement. Patient appeared somewhat paranoid, expressed that he is part of an "experiment. " He repeated this a few more times. When asked what he meant by this, he stated "the medications, it's all an experiment." I asked patient what medications he had been on in the past, he stated "Lexapro" at age 12. Stated he had been treated by a in [place], [place]. Thought process remains somewhat disorganized, non-linear at times, preoccupied about discharge. He denied suicidal and homicidal ideation, plans and intent. Denied auditory and visual hallucinations. Denied paranoid thoughts and delusions. Speech was repetative, normal volume and tone. Mood appeared irritable. Affect mostly constricted. Patient making slow progress with continued thought disturbance, including some paranoia, possibly in the setting of s/p Kratom ingestion. Speech is slowly improving, more verbal today. Patient continues to require inpatient hospitalization for safety and stabilization. PLAN: 1. Cont. current meds. 2. Utilize prn Zyprexa 2.5mg Q6H for continued thought distrubance. 3. Continue Ativan taper as ordered. 4. Obtain JUSTO from [facility] for previous hospital records when patient's begins to clear. 5. Meeting with patient's mother and INSULATION MANAGER for collateral. 6. Dispo planning per primary team.
[2017-03-15 11:57] VITALS: BP 142/77
--- NOTE | 2017-03-15 15:04 | SOCIAL WORKER PROG NOTE PSYCH ---
Social Work Progress Note Progress Note Had a family meeting with patients mother, Marilin, social media intern; Cailin Morales APRN and myself to determine plan of care from here, and to gather more input from patient's mother. Patient was not included in this meeting because it was felt by all concerned that it would counterproductive or detrimental for patient to attend, as he would not be able to leave with his mother, which would be upsetting; and, at this point patient would not be able to contribute, as we had just met with him prior to this meeting and he was not able to focus or contribute, as patient was just perseverative about leaving, although there has been little change in his status since he was admitted. Mother reiterated that patient had done very well when he lived in [place], but had a difficult time adjusting to living in [place] and that he spent much more time with his computer than with any friends. Patient apparently did fairly well in school, but felt that he should have done better. He graduated from high school,;took some time off and worked; and then he started going to [employer]. Per mom, patient had been doing pretty well until December Patient's mother described patient as being catatonic after he had run out of the medicine (0.5m.g.ativan, twice per day), which he had gotten when discharged from [facility]. Mother described the Catatonic behavior as being non-communicative; having no apetite; not sleeping;and being unhappy about his school performance, and even getting lost on the way home from school. Patient was referred to [facility]. The substance abuse which patient got involved with is likely responsible, but to an unknown degree. Will consider family meeting later in week. Mother requested that she be allowed to visit briefly during day, as she works evening shift at [employer].
[2017-03-15 15:52] VITALS: BP 141/78
--- NOTE | 2017-03-15 16:09 | SOCIAL WORKER PROG NOTE PSYCH ---
Social Work Progress Note Progress Note Patient's mother can visit around 12:30 p.m. during the day, as she works 3-11 at [employer]. Discussed debbie Griffith
[2017-03-15 19:52] VITALS: BP 133/88
[2017-03-16 07:42] VITALS: BP 135/76
[2017-03-16 12:29] VITALS: BP 132/81
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
[2017-03-16 15:58] VITALS: BP 143/78
--- NOTE | 2017-03-16 17:04 | SOCIAL WORKER PROG NOTE PSYCH ---
Social Work Progress Note Progress Note After several attempts to engage pt in a discussion, pt met with SW. Patient discussed experiencing social anxiety beginning at around age 10 after moving to the [facility] from [place]. He discussed how this has impacted his social life negatively and he has tended to keep to himself as a result. Pt also discussed a positive relationship with his parents and sister. Regarding aspirations, pt discussed wanting to become an auto electrician or work with computers. "I would also like to help people." Pt was clear, spontaneous and goal-directed during most of the discussion. Pt also discussed his hospitalization experiences. He stated that he had past substance use (Heroin, Ketamine and Suboxone) with combined Ketamine and Suboxone use resulting in his first hospitalization. He did not report any other substance use. Towards the end of the discussion, Pt began asking about discharge date and feeling his current hospital experience as being an experiment and that his mind was being controlled. He discussed feeling as though he was a "loser" and "letting my family down." At one point he stated, "just shoot me," but denied SI, plan, means or intent. Upon pt's inquiry about d/c, PATRICIA informed him that the treatment team will be meeting tomorrow and the team will be informed of this discussion, however a discharge date has not been identified at this time. Pt ultimately appeared accepting of this and stated that he is looking forward to visiting with his parents omernickolas.
[2017-03-16 19:33] VITALS: BP 142/77
[2017-03-17 07:42] VITALS: BP 135/76
--- NOTE | 2017-03-17 11:25 | CP SOUTH PROGRESS NOTE PSYCH ---
Psych (Inpt) Progress Note Progress Note Include the following elements, when applicable: Involvement in the active treatment of the patient with behavioral observations of the patient and the patient's response to the treatment. Review of the ongoing treatment process in the context of the treatment plan. Indication of how multi-disciplinary staff members are carrying out the treatment plan. Plans for future interventions and recommendations for revision of the treatment plan. Liaison with other physicians/providers. Progress Note: I discussed this patient's progress to date, current mental status, treatment process in the context of the treatment plan, and discharge planning with staff/ team in the daily morning inpatient team meeting. I also met with the patient myself in individual session. OBJECTIVE: Current Medications Sig/Devyn Start time Last Medication Dose Route Stop Time Status Admin Lorazepam 0.5 MG 0803/17 0800 DC 03/17 PO 03/17 0801 0809 Lorazepam 0.5 MG 08,03/16 0800 DC 03/16 PO 03/16 2001 193 Olanzapine 10 MG Q12P PRN 03/16 1030 AC IM Olanzapine 10 MG 08,03/14 2100 AC 03/17 PO 0809 Olanzapine 2.5 MG Q6P PRN 03/11 1400 AC 03/16 PO 1748 Vital Signs Date Time Temp Pulse Resp B/P B/P Pulse O2 O2 Flow FiO2 Mean Ox Delivery Rate 03/17 0742 95.0 80 135/76 03/16 1933 97.2 92 142/77 03/16 1558 96 143/78 03/16 1229 93 132/81 ASSESSMENT: Chart, progress notes, labs, VS and medication list reviewed. Vital signs within normal limits. No new labs results today. Reviewed patient's progress to date with nursing staff who described the patient as very focused on discharge, remains psychotic, was adherent to medications last night and this morning. No further episodes of exit-seeking or agitation today. Met with patient individually at 11:15AM. He was oriented x 3. Speech was soft- spoken, normal in rate and tone. He continued to perseverate on discharge, stated "I want my parents to pick me up from here." Thought process was disorganized with notable thought blocking. It was difficult for him to engage in any meaningful conversation, as he repeated, "Why can't I go home?" He described his sleep as good. Described his energy level as good. Reported having a normal appetite. Denied feeling hopeless, helpless, worthless, or guilty. He denied feeling anxious or depressed, however, indicated that he missed home. He denied SI and HI. Denied AVH. There was no evidence of overt paranoia or loni delusions on encounter. Patient making slow progress, with continued thought distrubance and thought blocking. He continues to require inpatient hospitalization for safety and stabilization. PLAN: 1. Cont. current dosing of Zyprexa for psychosis. Cont. offering prn Zyprexa. 2. Cont. monitoring for safety, mood and psychosis. 3. Explore dispo planning as patient begins to clear -- Care IOP versus IOP.
[2017-03-17 12:17] VITALS: BP 139/79
[2017-03-17 15:56] VITALS: BP 141/90
--- NOTE | 2017-03-17 16:49 | SOCIAL WORKER PROG NOTE PSYCH ---
Social Work Progress Note Progress Note VM received from Suzette ([phone]) regarding pt's insurance informing that the pt has been approved through the weekend, 5 days, 03/17-03/21/17 with a concurrent due on 03/22/17.
[2017-03-17 19:41] VITALS: BP 140/75
[2017-03-18 07:34] VITALS: BP 136/87
[2017-03-18 12:16] VITALS: BP 133/70
--- NOTE | 2017-03-18 14:35 | CP SOUTH PROGRESS NOTE PSYCH ---
Psych (Inpt) Progress Note Progress Note Include the following elements, when applicable: Involvement in the active treatment of the patient with behavioral observations of the patient and the patient's response to the treatment. Review of the ongoing treatment process in the context of the treatment plan. Indication of how multi-disciplinary staff members are carrying out the treatment plan. Plans for future interventions and recommendations for revision of the treatment plan. Liaison with other physicians/providers. Progress Note: I discussed this patient's progress to date, current mental status, treatment process in the context of the treatment plan, and discharge planning with staff/ team in the daily morning inpatient team meeting. I also met with the patient myself in individual session. Current Medications Sig/Devyn Start time Last Medication Dose Route Stop Time Status Admin Olanzapine 2.5 MG Q4 HRS NEEDED PRN 03/18 0945 AC PO Olanzapine 10 MG Q12P PRN 03/16 1030 AC IM Olanzapine 10 MG 0800,2100 03/14 2100 AC 03/18 PO 0813 Olanzapine 2.5 MG Q6P PRN 03/11 1400 DC 03/16 PO 1748 Vital Signs Date Time Temp Pulse Resp B/P B/P Pulse O2 O2 Flow FiO2 Mean Ox Delivery Rate 03/18 1216 80 133/70 03/18 0734 96.9 79 136/87 03/17 1941 97.1 89 140/75 03/17 1556 97 141/90 ASSESSMENT: Chart, progress notes, labs, VS and medication list reviewed. Vital signs within normal limits. No new labs results today Reviewed patient's progress to date with nursing staff who described patient as willingly taking po medications. He has shown improved behavioral control. No further episodes of agitation or exit-seeking. Sleeping well. Attending and participating in groups. Thoughts seem somewhat clearer. Speech more spontaneous. No mention of SI, HI or AVH. Met with patient this afternoon at 2:45PM. He shared about how in the past he had been disrespectful to his parents, around age 11. Stated he would curse at them because he thought it was "the cool thing to do." He then segued into talking about his last overdose on Ketamine, 2 months ago which resulted on hospitalization. Stated this concerned his parents greatly. Stated he felt some guilt relating to these events. Shared that his relationships with his parents have improved since then. Stated having positive nightly visits with them here. Thought process more linear, clearer. Speech soft-spoken, more spontaneous with occasional brief latency. Eye contact appropriate. Described his mood as "ok." Affect was calm, subramanian in range, smiling appropriately at times, non-labile. Reported feeling "a little bit" depressed over nothing in particular. Still expressed wanting to go home, but more accepting of being hospitalized. Talked about scheduling a family meeting for Tuesday with his parents if they are available to discuss discharge planning. He was in favor of this. He denied feeling hopeless, worthless and helpless. Denied suicidal and homicidal ideation. Denied auditory and visual hallucinations. Denied paranoid ideation. No evidence of bizarre thoughts, paranoia or loni delusions. Stated his sleep is good. Reported an improved appetite. Described his energy level as "ok." Patient making slow progress. Thought process slowly clearing. Continues to require inpatient hospitalization for further monitoring and stabilization. PLAN: 1. Cont. Zyprexa 10mg po BID. *Utilize maximum prn doses of 2.5mg Zyprexa for continued psychosis. Consider increase in scheduled Zyprexa if thought process regresses. 2. Cont. monitoring on unit for safety, mood, thought disturbance. 3. Schedule family meeting for Tuesday w/ parents to discuss discharge planning. 4. Dispo planning per primary team - [facility] versus Care.
[2017-03-18 16:36] VITALS: BP 141/93
--- NOTE | 2017-03-18 16:53 | SOCIAL WORKER PROG NOTE PSYCH ---
Social Work Progress Note Progress Note Marilin and I met with Case this afternoon for individual session, and to talk about discharge plans and need to stay on medication. Patient was far more talkative and animated than he had been even yesterday; however, he kept saying that he felt that he was "just wasting your time." And later, he reiterated that he felt he "was a bad son", not happy with the likelihood that he would be returning home with parents. We brainstormed things he might work on over weekend, such as journaling. Will plan to have a family meeting on Tuesday, and I will call parents tomorrow to set that up. Patient improving, but struggling with need to "stay on medication"
[2017-03-19 07:55] VITALS: BP 137/75
[2017-03-19 12:24] VITALS: BP 142/63
--- NOTE | 2017-03-19 14:41 | CP SOUTH PROGRESS NOTE PSYCH ---
Psych (Inpt) Progress Note Progress Note Include the following elements, when applicable: Involvement in the active treatment of the patient with behavioral observations of the patient and the patient's response to the treatment. Review of the ongoing treatment process in the context of the treatment plan. Indication of how multi-disciplinary staff members are carrying out the treatment plan. Plans for future interventions and recommendations for revision of the treatment plan. Liaison with other physicians/providers. Progress Note: Chart reviewed and progress d/w nursing staff. Interviewed patient this morning. Pleasant and cooperative though mildly behaviorally unusual and disorganized. Reports mild sedation, o/w denies current concerns. Denies SI/HI/AVH, depressed mood, anxiety. Vitals wnl. No new labs today. MSE: well groomed CM cooperative with interview. Stands and mimics some aspects of this headline writer's posture. Speech was monotonous. Mood "fine" affect slightly unusual, non congruent. TP mildly circumstantial. TC without SI/HI, denies AVH, cognition was grossly intact. i/j limited. A/P: slowly resolving psychotic syndrome. Continue present management. if sedation persists consider shifting most or all of zyprexa to bedtime.
--- NOTE | 2017-03-19 15:22 | SOCIAL WORKER PROG NOTE PSYCH ---
Social Work Progress Note Progress Note Spoke with patient's mother today. She sees patient as "being much better". Mother was very responsive to having family meeting, and said that it would be better for her if it could be early in the day. It sounded as though patient has convinced mom that he is sufficiently well to enable him to go home. Patient's father will not be able to get time off from work, but he may be able to participate at meeting via telephone. Mother was asked to mention to patient that he will need to accept being on medicine, and she said that she would discuss this for patient's benefit Meeting scheduled for 1:30 p.m.
[2017-03-19 15:36] VITALS: BP 139/74
[2017-03-19 20:14] VITALS: BP 139/74
[2017-03-20 07:45] VITALS: BP 125/74
[2017-03-20 11:59] VITALS: BP 141/88
--- NOTE | 2017-03-20 14:04 | CP SOUTH PROGRESS NOTE PSYCH ---
Psych (Inpt) Progress Note Progress Note Include the following elements, when applicable: Involvement in the active treatment of the patient with behavioral observations of the patient and the patient's response to the treatment. Review of the ongoing treatment process in the context of the treatment plan. Indication of how multi-disciplinary staff members are carrying out the treatment plan. Plans for future interventions and recommendations for revision of the treatment plan. Liaison with other physicians/providers. Progress Note: Chart reviewed and progress d/w nursing staff. Interviewed patient this morning. Pleasant and cooperative though again behaviorally unusual and disorganized. SEdation improved somewhat. Reports some worry and mild depression attributed to going home soon. Denies SI/HI/AVH. Vitals wnl. No new labs today. MSE: well groomed CM cooperative with interview. Speech was monotonous. Mood "I' m a little down" affect unusual, non congruent. TP circumstantial. TC without SI /HI, denies AVH, cognition was grossly intact. i/j limited. A/P: slowly resolving psychotic syndrome though thought disorganization persists to some degree. Continue present management.
[2017-03-20 15:48] VITALS: BP 166/65
[2017-03-20 19:58] VITALS: BP 136/96
[2017-03-21 08:16] VITALS: BP 139/71
[2017-03-21 12:14] VITALS: BP 134/94
--- NOTE | 2017-03-21 12:18 | CP SOUTH PROGRESS NOTE PSYCH ---
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 He was catatonic and thought blocking. He was very disorganized Mental Status 03/21/2017 Patient seemed significantly better compared to last weekend, he was more organized, less perseveration, he believes he may be discharged tomorrow and is looking forward to that He reported feeling anxious but denied feeling depressed. He denied hallucinations but continues to report thoughts, his responses today were not delayed and were appropriate He denied thinking of suicide or wishing . He denied thoughts of violence or homicide He was alert and oriented PLAN: I reviewed his medications and options, we agreed on Add PRNs gabapentin 600 mg Q 6 hours Follow up with regular treatment team tomorrow
[2017-03-21 15:51] VITALS: BP 124/76
[2017-03-21 19:45] VITALS: BP 137/67
[2017-03-22 08:12] VITALS: BP 127/91
--- NOTE | 2017-03-22 08:18 | CP SOUTH PROGRESS NOTE PSYCH ---
Psych (Inpt) Progress Note Progress Note Include the following elements, when applicable: Involvement in the active treatment of the patient with behavioral observations of the patient and the patient's response to the treatment. Review of the ongoing treatment process in the context of the treatment plan. Indication of how multi-disciplinary staff members are carrying out the treatment plan. Plans for future interventions and recommendations for revision of the treatment plan. Liaison with other physicians/providers. Progress Note: I discussed this patient's progress to date, current mental status, treatment process in the context of the treatment plan, and discharge planning with staff/ team in the daily morning inpatient team meeting. I also met with the patient myself in individual session. Current Medications Sig/Devyn Start time Last Medication Dose Route Stop Time Status Admin Gabapentin 600 MG Q6-PRN PRN 03/21 1230 AC 03/22 PO 0803 Gabapentin 400 MG Q6-PRN PRN 03/21 1015 DC 03/21 PO 1217 Olanzapine 2.5 MG Q4 HRS NEEDED PRN 03/18 0945 AC PO Olanzapine 10 MG Q12P PRN 03/16 1030 AC IM Olanzapine 10 MG 0800,2100 03/14 2100 AC 03/22 PO 0802 Vital Signs Date Time Temp Pulse Resp B/P B/P Pulse O2 O2 Flow FiO2 Mean Ox Delivery Rate 03/22 0812 97.2 76 127/91 03/21 1945 98.1 98 137/67 03/21 1551 97 124/76 03/21 1214 92 134/94 A: Chart, weekend progress notes, Vital signs, labs and medication list were reviewed. No new lab results today or from over the weekend. Vital signs within normal limits. Gabapentin 600mg Q6H was started over the weekend for anxiety. Patient's progress to date was reviewed with nursing staff. They described him to show a more organized thought process with improved behavioral and physical control, speaking more appropriately, and social with peers. Had experienced some anxiety over the weekend which was managed appropriately with staff support and prns. Met with patient individually this morning. He presented calm and cooperative on the date of discharge. Mood was "good." Affect was blunted with occasional smiling appropriately. Speech was fluid, coherent, normal in rate, tone and volume. Thought process was linear, mildly circumstantial at times, and goal- directed. Eye contact was appropriate. He had no complaints. Reported tolerating medications well overall, reported improvement in sedation likely secondary to Zyprexa. He rated anxiety and depression a 3/10 (10 being the worst). Stated he felt anxiety was helped by newly started prn Gabapentin. He denied feeling hopeless, helpless, worthless or guilty. He denied passive and active suicidal idetaion, plans and intent. Denied homicidal ideation, auditory and visual hallucinations. He stated and also believed he will not harm himself or others. Gave protective factors of "my mom" and "my dad." Denied paranoid thoughts. There was no evidence of bizarre thoughts, paranoia or delusions. Stated energy level is "fine." Reported appetite and sleep are good. He reported feeling safe and ready for discharge, and was agreeable to following up at [facility] for intake and continued treatment. Family meeting was held with the patient, his mother, Mitesh MonsivaisJohnnyjun GUERRERO, and Marilin Sahni LCSW and Chevy. Patient's treatment progress to date, medication regimen and discharge plan were reviewed and discussed. Patient's mother expressed a significant improvement in the patient's condition, felt he was near baseline. Spent an extensive time stressing the importance of medication adherence, and answering the patient and his mother's questions surrounding prescribed medications and IOP structure. Patient's mother expressed no safety concerns surrounding the patient's discharge today, or surrounding discharge plan. The patient and his mother were in favor of discharge plan. P: 1. Discharge to home today into the care of his mother. 2. F/u at [facility] for intake tomorrow, 03/23/17 at 12:45PM. 3. All discharge prescriptions were e-prescribed to [facility] in [place], [place] today. 4. Patient was advised to abstain from all substances. Patient verbalized understanding of education. 5. In the event of an emergency, call 911/go to nearest emergency department. Patient verbalized understanding of all instructions.
[2017-03-22 12:53] VITALS: BP 142/73
[2017-03-22] MEDS ORDERED: GABAPENTIN300 M2 PO (14:03)
[2017-03-22] MEDS ORDERED: OLANZAPINE10 M1 PO (14:04)
--- NOTE | 2017-03-22 14:07 | DISCHARGE SUMMARY REPORT-PSYCH ---
Visit Information Visit Dates/Diagnosis' Admission Date: 03/11/17 Discharge Date: 03/22/17 Reason for Admission: The patient was admitted to [facility] on a PEC on 03/11/17 after starting [facility] on 03/10/17 and being unable to participate due to disorganization, thought blocking, inability to relate and communicate. Given past reported history of Kratom use there was suspicion that the patient may have used this substance prior to the onset of most recent presentation. 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 Hospital Course Significant Lab Findings: Lab U Benzodiazepines Scrn 236 NG/ML H 03/10/17 1355 CBC, CMP, Lipid panel, TSH and TFTs were all within normal limits. Course Complications: None. Consultations: Patient was seen for admission history and physical by poultry husbandry worker Dr. Dorothea Aguilar. Please see his note for additional information. Allergies: Coded Allergies: NO KNOWN ALLERGIES (05/03/12) Hospital Course/TX Response: The patient was monitored on the unit for safety, mood, suicidal ideation and psychosis. As his thought process improved and grew more organized, the patient participated in multimodal treatments on the unit. The patient was initially started in Ativan 1mg po four times a day for suspected catatonia, which was later tapered off. Patient was additionally started on Zyprexa 5mg po four times a day which was gradually changed to 10mg BID for disorganized thoughts and to simply dosing regimen as the patient had initially been quite paranoid about taking medications. Gabapentin 600mg every six hours as needed was started for anxiety, and later changed to every 8 hours as needed. The patient tolerated all medications well and denied acute untoward effects. During the hospital course, the patient's mood and affect improved. He consistently denied suicidal and homicidal ideation. His thought process significantly improved, was clear, mostly linear with occasional periods of circumstantiality. Two family meetings were held with the patient's mother, Mitesh Turner, YOLANDA, Marilin Sahni LCSW, and Chevy. During the first family meeting, the patient was not included given his impulsive/agitated and exit-seeking behavior secondary to his thought disorganization. During this meeting, the treatment team obtained a psychiatric history from the patient's mother. A week later, a second a family meeting was held with the patient, his mother, and primary treatment team. The patient's treatment progress, medication regimen, level of safety and discharge planning were reviewed and discussed. The patient' s mother expressed seeing a significant improvement in the patient's condition, felt he was near baseline. I spent an extensive time stressing the importance of medication adherence, abstinence from all substances, and answering the patient and his mother's questions surrounding prescribed medications and IOP structure. Patient's mother expressed no safety concerns surrounding the patient's discharge today, or surrounding discharge plan. The patient and his mother were in favor of discharge plan. On the date of discharge, 03/22/17, the patient presented calm and cooperative. He was oriented x 3. His mood was "good." Affect mostly blunted with appropriate smiling on occasion. Speech was fluid, coherent, normal in rate, tone and volume. Thought process was linear, mildly circumstantial at times, and goal- directed. Eye contact was appropriate. He had no complaints. Reported tolerating medications well overall, reported improvement in sedation likely secondary to Zyprexa. He rated anxiety and depression a 3/10 (10 being the worst). Stated he felt anxiety was helped by newly started prn Gabapentin. He denied feeling hopeless, helpless, worthless or guilty. He denied passive and active suicidal idetaion, plans and intent. Denied homicidal ideation, auditory and visual hallucinations. He stated and also believed he will not harm himself or others. Gave protective factors of "my mom" and "my dad." Denied paranoid thoughts. There was no evidence of bizarre thoughts, paranoia or delusions. Stated energy level is "fine." Reported appetite and sleep are good. He reported feeling safe and ready for discharge, and was agreeable to follow up at [facility] for intake and continued treatment. Discharge HBIPS - Tobacco Use Treatment Offered Post DC Medications Offered: Not Applicable Post DC Tobacco Treatment Plan: Not Applicable - EtOH/Drug Use D/O Treatment Offered Post DC Medications Offered: Med Not Indicated for D/O Post DC EtOH/SubAbuse TX Plan: Onel SubAbuse/Dual IOP Program Appt Date: 03/23/17 Program Appt Time: 1245 Metabolic Screening - Screen if on a Neuroleptic Medication - Metabolic screening should include: - Blood Pressure, BMI, Glucose or Hgb A1c, & a - Lipid profile from within the past 365 days. Metabolic Screening () Not Applicable, patient not on a neuroleptic. OR ([X]) Patient on a neuroleptic(s) . Enter below results for Glucose or Hemoglobin A1C, and lipid panel if obtained during the last 365 days. BMI: 23.000 Blood Pressure: 142/73 Laboratory Results (If applicable): Lab Cholesterol 148 MG/DL 03/12/17 0630 Cholesterol/HDL Ratio 3 % 03/12/17 0630 Glucose 91 mg/dL 03/10/17 1310 HDL Cholesterol 59 mg/dL 03/12/17 0630 LDL Cholesterol, Calc 76 mg/dL 03/12/17 0630 Triglycerides 69 mg/dL 03/12/17 0630 Discharge Instructions General Discharge Information Discharge Medications: Discharge Medications- (Dose, route, freq, indication): START taking these NEW Home Medications: Gabapentin Dose: ORAL, EVERY 8 HOURS Qty: 84 Sent to (Gabapentin) 300 MG 600 Milligram NEEDED as needed for Refills: 0 Pharm 1 CAPSULE off-label anxiety Take 2 caps (600mg) po every 8 hours as needed. Olanzapine Dose: ORAL, 0800,2100 for Qty: 28 Sent to (Olanzapine) 10 MG 10 Milligram clear thoughts/mood Refills: 0 Pharm 1 TABLET stability Take 1 tab po QAM and QHS. STOP taking these DISCONTINUED Home Medications: Lorazepam (Lorazepam) 0.5 MG Dose: ORAL, 2 x Daily as needed as TABLET 1 Tablet needed for ANXIETY Reason Stopped: Changed Dose 1: [id number] [address] [place] [address] Your Preferred Pharmacy [id number] [address] [place] [address] Multiple Neuroleptics: ([X]) Not Applicable OR Document below three failed attempts at monotherapy, or a plan to taper to monotherapy, or augmentation of Clozapine. () Patient's Diet: Regular. Patient's Activity: No restrictions. DC Disposition: Patient to return home to parents. Recommendations: Patient was advised to please take his medications as prescribed. He was advised to abstain from all substances. He was advised to follow up at [facility] for intake and treatment there after. He was advised that in the event of an emergency, to call 911/go to nearest emergency department. The patient verbalized understanding of all instructions. Referred To: Service Date: 03/23/17 Referred To: [facility] [address] [place] [address] *Intake appointment scheduled tomorrow, 03/23/17 at 12:45PM. Copies To: [facility]
--- NOTE | 2017-03-22 14:56 | SOCIAL WORKER PROG NOTE PSYCH ---
Social Work Progress Note Progress Note 03/22/17, 1:30pm: This SW, Codie Turner, Roopa Lawson APRN, pt and pt's mother met to discuss discharge and discharge plans. Progress was discussed and as well as discharge plans were discussed. Pt discussed questions/concerns related to medications with Roopa Lawson APRN. He accepted an intake appt with IOP for 03/23 at 12:45pm. Pt and is mother were informed of IOP/Outpt services. Pt was actively engaged, appropriate and spontaneous during the session. He discussed plans to spend time with his dog tonight, eat a home-cooked meal and watch some television. He was informed of the location of the IOP and appeared motivated to follow through with intensive outpt treatment.
--- NOTE | 2017-03-22 15:11 | SOCIAL WORKER PROG NOTE PSYCH ---
Social Work Progress Note Progress Note Meeting for impending dischrge was held and it went well, with referral for intake at [facility] scheduled for tomorrow at 12:45 p.m. Discharge review left on voice mail of Suzette at [facility]. Referral and w-10 faxed to [facility].
--- NOTE | 2017-03-23 14:51 | IP INCIDENTAL NOTE PSYCH ---
Incidental Note Notation: Received phone call today from Alam Tong LCSW, at [facility]. She stated patient was in progress of completing intake and expressed passive SI, denied plans or intent. Informed Ms. Tong that these symptoms were not present through the patient's inpatient hospital course. Briefly discussed case with Dr. Garrett, then recommended that patient continue on prescribed dose of Zyprexa 10mg BID and in the event that passive SI worsens for patient to go to the nearest emergency department or call 911. Per Tong, she related this information to patient. I informed Ms. Tong that if she felt the patient warranted an immediate crisis evaulation to refer him to ED. She did not feel this was necessary at this time.
== END 2017-03-22 14:59 | DRG 885 ==
LOC: ERH 11:52 → ERHI 03-11 09:12 → CP SOUTH 03-11 09:12 → ENTRNSPT 03-11 11:53 → EDTRNSPTTYP 03-11 11:58 → CP SOUTH 03-11 12:20 → CMPTRNSPT 03-11 12:48 → CP SOUTH 03-11 16:11 → ENRESERV 03-11 23:59 → CP SOUTH 03-19 19:51
PROVIDERS: Emergency Medicine; Psychiatry & Neurology Psychiatry; ADMIT Psychiatry & Neurology Addiction Medicine
DX: F29 Unspecified psychosis not due to a substance or known physiological condition (principal); F41.9 Anxiety disorder, unspecified; R45.1 Restlessness and agitation
CPT/HCPCS: 36415; 80307; G0463; G0480; J1630; J2060; J3490